=== PATIENT | female | born 1955 | race Caucasian/White ===

== ENCOUNTER → 2020-09-15 | Outpatient (CLI) | payer MEDICARE, OTHER ==
[~2020-09-15] MED LIST: ADVAIR 250-501 EACH INH; CEFUROXIME500 MG PO; CETIRIZINE HCL10 MG PO; DAILY VALUE1 EACH PO; ELIQUIS 2.5 MG2.5 MG PO; FERROUS SULFAT325 MG PO; FISH OIL 1,0001 EAC5 PO; IBU800 MG PO; MIRTAZAPINE15 MG PO; NEBULIZER INH; NIACIN500 M1 PO; NORVASC5 MG PO; PAXIL10 MG PO; PERCOCET 5-3251 EACH PO; PROTONIX 40 MG40 M1 PO; PROTONIX40 MG PO; VENTOLIN HFA 66.7 GM INH; VITAMIN D21250 MCG PO
[2020-09-15 13:17] LABS: HEMOGLOBIN 12.4 gm/dl (12.3-15.3); RED BLOOD COUNT 4.73 M/UL (4.00-5.10); WHITE BLOOD COUNT 11.3 K/UL (4.5-11.0)
[2020-09-15 13:43] LABS: BUN/CREATININE RATIO 22 (0-10)
== END ==
LOC: OPSV2 12:00
PROVIDERS: Orthopaedic Surgery
DX: Z01.818 Encounter for other preprocedural examination (principal); R91.8 Other nonspecific abnormal finding of lung field
CPT/HCPCS: 36415; 71046; 80048; 85027; 93005

== ENCOUNTER → 2020-09-16 | Day surgery (SDC) | payer MEDICARE, OTHER | END | disposition home or self-care (01) | LOC: OR 06:22 | DX: S52.001A Unspecified fracture of upper end of right ulna, initial encounter for closed fracture (principal); J45.909 Unspecified asthma, uncomplicated; I10 Essential (primary) hypertension; K21.9 Gastro-esophageal reflux disease without esophagitis; E78.5 Hyperlipidemia, unspecified; F32.9 Major depressive disorder, single episode, unspecified; F41.0 Panic disorder [episodic paroxysmal anxiety]; Z88.5 Allergy status to narcotic agent; Z79.899 Other long term (current) drug therapy; X58.XXXA Exposure to other specified factors, initial encounter | CPT/HCPCS: 71045; 73080; 76000; 82962; C1713; C1762; J0690; J1100; J2001; J2310; J2405; J2704; J2795; J3010; J3370; J7120 ==

== ENCOUNTER → 2020-11-17 | Outpatient (CLI) | payer MEDICARE, OTHER ==
[2020-11-17 13:57] LABS: HEMOGLOBIN 11.9 gm/dl (12.3-15.3); RED BLOOD COUNT 4.07 M/UL (4.00-5.10); WHITE BLOOD COUNT 8.8 K/UL (4.5-11.0)
== END ==
LOC: EDSTATUS 12:00 → OPSV2 12:00
PROVIDERS: Orthopaedic Surgery
DX: Z01.812 Encounter for preprocedural laboratory examination (principal); Z01.810 Encounter for preprocedural cardiovascular examination; Z01.811 Encounter for preprocedural respiratory examination; Q65.89 Other specified congenital deformities of hip; R00.0 Tachycardia, unspecified; R94.31 Abnormal electrocardiogram [ECG] [EKG]
CPT/HCPCS: 36415; 71046; 80048; 81001; 85025; 87077; 87081; 87086; 87186; 93005

== ENCOUNTER → 2020-11-24 | Outpatient (CLI) | payer MEDICARE, OTHER | LOC: LAB 13:28 | PROVIDERS: Orthopaedic Surgery | DX: Z01.812 Encounter for preprocedural laboratory examination (principal) | CPT/HCPCS: 36415; 80048; 86850; 86900; 86901; 86920 ==

== ENCOUNTER 2020-11-25 07:26 | Inpatient (IN) | payer MEDICARE, OTHER ==
[~2020-11-25] VITALS: Ht 160 cm; Wt 86.2 kg
[~2020-11-25 07:26] MED LIST changes: -CEFUROXIME500 MG PO; -ELIQUIS 2.5 MG2.5 MG PO; -PERCOCET 5-3251 EACH PO; -PROTONIX 40 MG40 M1 PO
[2020-11-25] MEDS ORDERED: PERCOCET 5-3251 EACH PO (15:48)
[2020-11-26 05:50] LABS: HEMOGLOBIN 8.7 gm/dl (12.3-15.3); RED BLOOD COUNT 2.99 M/UL (4.00-5.10); WHITE BLOOD COUNT 20.5 K/UL (4.5-11.0)
--- NOTE | 2020-11-26 16:01 | NUR ---
reported to dr. wolfe patient having tachycardic episodes 140's-150's with no other problem reported, patient denies h/c, n/v dizziness or pain. stated to cont to monitor patient
[2020-11-27 06:00] LABS: HEMOGLOBIN 7.4 gm/dl (12.3-15.3)
[2020-11-27 06:01] LABS: RED BLOOD COUNT 2.55 M/UL (4.00-5.10); WHITE BLOOD COUNT 14.1 K/UL (4.5-11.0)
[2020-11-27] MEDS ORDERED: PROTONIX 40 MG40 M1 PO (10:02)
[2020-11-27] MEDS ORDERED: CEFUROXIME500 MG PO (10:02)
[2020-11-27] MEDS ORDERED: ELIQUIS 2.5 MG2.5 MG PO (11:13)
[2020-11-27 13:42] LABS: HEMOGLOBIN 8.8 gm/dl (12.3-15.3)
== END 2020-11-27 14:39 | disposition home health service (06) | DRG 470 ==
LOC: OR 07:26 → EDSTATUS 12:45 → CDU 16:52 → M/S 16:52 → OR 11-26 14:15 → M/S 11-27 14:39
PROVIDERS: Internal Medicine; ADMIT Orthopaedic Surgery
PROC: 0SRB02A Replacement of Left Hip Joint with Metal on Polyethylene Synthetic Substitute, Uncemented, Open Approach (ICD-10-PCS; principal; 2020-11-25 12:45)
PROC: 30233N1 Transfusion of Nonautologous Red Blood Cells into Peripheral Vein, Percutaneous Approach (ICD-10-PCS; 2020-11-27)
DX: M16.12 Unilateral primary osteoarthritis, left hip (principal); D62 Acute posthemorrhagic anemia; N30.00 Acute cystitis without hematuria; K21.9 Gastro-esophageal reflux disease without esophagitis; J45.909 Unspecified asthma, uncomplicated; F40.240 Claustrophobia; Z20.822 Contact with and (suspected) exposure to COVID-19; Z96.669 Presence of unspecified artificial ankle joint; I12.9 Hypertensive chronic kidney disease with stage 1 through stage 4 chronic kidney disease, or unspecified chronic kidney disease; N18.30 Chronic kidney disease, stage 3 unspecified; G89.29 Other chronic pain; B96.1 Klebsiella pneumoniae [K. pneumoniae] as the cause of diseases classified elsewhere; I95.9 Hypotension, unspecified; Z88.5 Allergy status to narcotic agent; Z90.49 Acquired absence of other specified parts of digestive tract; Z98.890 Other specified postprocedural states; Z99.3 Dependence on wheelchair
CPT/HCPCS: 36415; 36430; 71045; 72170; 76000; 80048; 81001; 85014; 85018; 85025; 86850; 86900; 86901; 86920; 94640; 94664; 94760; 97110-GP-CQ; 97116; 97116-GP-CQ; 97162; 97166; 97530; 97530-GP-CQ; C1713; C1776; J0171; J0690; J0696; J1100; J1170; J1644; J2250; J2310; J2370; J2405; J2795; J3010; J3370; J7030; J7050; J7120; P9016; U0003